=== PATIENT | female | born 1955 | race Caucasian/White ===

== ENCOUNTER 2017-01-02 09:15 | Outpatient (CLI) | payer BC ==
--- NOTE | 2017-01-02 15:52 | DIAGNOSTIC IMAGING REPORT ---
PROCEDURE: MG BILATERAL SCREENING W/CAD INDICATION: Screening. Status post right lumpectomy for breast carcinoma (2011). Family history breast carcinoma (mother). TECHNIQUE: Bilateral CC and MLO digital views. COMPARISON: Compared to 12/28/2015, 12/24/2014, and 01/13/2014. FINDINGS: Computer-aided detection applied. Moderately dense. There is stable postoperative changes of the right breast with surgical clips. No change. IMPRESSION: 1. Stable postoperative changes of the right breast. 2. Otherwise negative mammogram. RESULT CODE: 2- Benign finding(s). A. A negative report should not delay biopsy if a dominant or clinically suspicious mass is present. 10-15% of cancers are not identified by x-ray. B. A negative report may reinforce clinical impression. C. Adenosis and dense breasts may obscure an underlying neoplasm. D. False positive reports average 6-10%. E.. A yearly screening mammogram is recommended. A reminder letter will be scheduled.
== END 2017-01-02 23:00 ==
LOC: MAM SRH 09:15
DX: Z12.31 Encounter for screening mammogram for malignant neoplasm of breast (principal); Z80.3 Family history of malignant neoplasm of breast; Z98.890 Other specified postprocedural states